=== PATIENT | female | born 1950 | race Caucasian/White ===

== ENCOUNTER 2024-01-01 08:33 | Day surgery (SDC) | payer MEDICARE, SELFPAY ==
[2023-12-31 07:00] VITALS: BMI 16.1
[2024-01-01 08:39] VITALS: BMI 15.6
[2024-01-01 08:45] VITALS: BP 161/77; PULSE 74; RESP 18; TEMP 36.7; O2SAT 100
[2024-01-01] MEDS: Lactated Ringers 1,000 ML 80 ML IVCONT (08:59)
--- NOTE | 2024-01-01 09:46 | HO.ANESPROP2 ---
HPI - Anesthesia Eval Consult details Narrative: [facility] Past Medical History Medical History Anxiety Occasional tremors Hypercholesteremia Tubular adenoma of colon Skin cancer HTN (hypertension) Family History Family history of problems with anesthesia: No Surgical History Surgical History Hx of appendectomy H/O colonoscopy History of Problems with Anesthesia: No Social History Social History Are you a primary direct support professional caregiver to a significant other at home: No Do you presently have visiting nurse or other home services: No Patient Tobacco Use Status: Former Tobacco user Have you been hit, kicked, punched, or otherwise hurt by someone within the past year? If so, by whom?: No Are you DNR?: No Advance Directives: No Advance Directives Information Provided: Yes Recently lost weight without trying: No Meds Allergies Allergy/AdvReac Type Severity Reaction Status Date / Time Sulfa (Sulfonamide Allergy Rash Verified 01/01/24 08:51 Antibiotics) Active Medications: Current Medications Lactated Ringer's (Lr) 1,000 mls @ 80 mls/hr IVCONT .[id number] SERGIO Last Admin: 01/01/24 08:59 Dose: 80 mls/hr Sodium Biphosphate/Sodium Phosphate (Sodium Phosphate,[place]-Dibasic 133 Ml Enema) 133 ml VA ONCE PRN PRN Reason: Poor Colonoscopy Prep Results Home Medications ?Medication ?Instructions ?Recorded ?Confirmed ?Last Taken ?Type Co Q-10 12/31/23 12/31/23 Unknown History Vitamin D3 12/31/23 Unknown History aspirin 81 mg tablet,delayed 81 mg PO DAILY 12/31/23 12/31/23 12/25/23 History release atorvastatin 40 mg tablet 40 mg PO DAILY 12/31/23 12/31/23 Unknown History fluticasone propionate 50 2 spray intranasal QAM 12/31/23 12/31/23 Unknown History mcg/actuation nasal spray,suspension hydrochlorothiazide 12.5 mg tablet 12.5 mg PO DAILY 12/31/23 12/31/23 Unknown History lorazepam 0.5 mg tablet 0.5 mg PO BID PRN anxiety 12/31/23 12/31/23 Unknown History propranolol 40 mg tablet 40 mg PO DAILY PRN Tremor(S) 12/31/23 12/31/23 Unknown History Exam Height,Weight and Vital Signs: Height 5 ft 5 in Weight 42.638 kg Last Vital Signs Temp 98.1 F 01/01/24 08:45 Pulse 74 01/01/24 08:45 Resp 18 01/01/24 08:45 BP 161/77 H 01/01/24 08:45 Pulse Ox 100 01/01/24 08:45 O2 Del Method Room Air 01/01/24 08:45 Airway Mallampati Class: II TM Dist: <=3cm Neck ROM: Full Loose/Missing/Broken Teeth: No Heart: ok Lungs: ok Assessment and Plan Assessment Anesthesia Assessment: Anesthesia Plan Discussed and Chart Reviewed Final Anesthetic Review Family History of Problems with Anesthesia: No History of Problems with Anesthesia: No NPO: Yes ASA Class: III Final Preanesthetic Review: No Changes in Pt Med Stat, Meds/Allgs Chart Reviewed, Consent Obtained/Reviewed and Anes Risks/Benef Reviewed Patient Risk: Intermediate Procedure Risk: Low Anesthetic Plan Anesthetic Plan: MAC: and Agree w/ Assess. and Plan Disposition: Standard PACU
[2024-01-01 10:49] VITALS: BP 89/46; PULSE 56; RESP 18; TEMP 36.1; O2SAT 100
--- NOTE | 2024-01-01 10:50 | P.BOP_ITS ---
Brief Operative Note Date of Service: 01/01/24 Pre-op diagnosis: Screening Post-op diagnosis: other (Diverticulosis) Procedure: Colonoscopy to the cecum and TI Surgeon: Agusto Soliz MD Anesthesia: MAC Was an Chief Sustainability Officer used for this Procedure?: No Estimated blood loss (mL): 0 Pathology: none sent Condition: stable Disposition: PACU
[2024-01-01 11:04] VITALS: BP 115/62; PULSE 53; RESP 18; TEMP 36.1; O2SAT 98
--- NOTE | 2024-01-01 12:01 | OP_ITS ---
DATE OF SERVICE: 01/01/2024 SURGEON: Agusto Soliz MD INDICATIONS: The patient presents for evaluation of colorectal cancer screening, personal history of tubular adenoma of the colon, and family history of colon cancer. Full consent has been obtained from her for this, including risks of bleeding and perforation. PREOPERATIVE DIAGNOSIS: POSTOPERATIVE DIAGNOSIS: PROCEDURE PERFORMED: Colonoscopy to the cecum and terminal ileum. ESTIMATED BLOOD LOSS: COMPLICATIONS: ANESTHESIA: Monitored anesthesia care. ASSISTANTS: SPECIMENS: PREOPERATIVE DIAGNOSES: Colorectal cancer screening, personal history of tubular adenoma of the colon, and family history of colon cancer. POSTOPERATIVE DIAGNOSES: Colorectal cancer screening, personal history of tubular adenoma of the colon, and family history of colon cancer, diverticulosis, and internal hemorrhoids. DESCRIPTION OF PROCEDURE: The patient was placed in the left lateral decubitus position. The digital rectal exam revealed no abnormalities. The Olympus video pediatric colonoscope was entered into the rectum and advanced to the cecum with the assistance of abdominal wall pressure. Once in the cecum, I did identify normal-appearing cecal pouch with appendiceal orifice and a normal-appearing ileocecal valve. The terminal ileum was cannulated and appeared normal. The scope was withdrawn back in the colon. The entire cecum and ileocecal valve appeared normal. The scope was slowly withdrawn assessing all mucosal surfaces carefully. Preparation was excellent. I did not visualize any sign of polyps, colitis, nor angiodysplasia. There was a mild amount of sigmoid diverticulosis. In the rectum, scope was retroflexed visualizing internal hemorrhoids, but no other pathology. The rectal mucosa appeared normal. The scope was straightened and withdrawn from the patient. She tolerated the procedure well and was returned to the recovery area in stable condition. IMPRESSION: 1. Diverticulosis. 2. Internal hemorrhoids. PLAN: I would recommend a repeat colonoscopy for screening in 5 years given her previous history of tubular adenomas and family history of colon cancer. She was advised that she could resume her aspirin today. She will otherwise see me on a p.r.n. basis. MD SUSAN Keating/NOHEMI / [phone]
== END 2024-01-01 11:31 | disposition home or self-care (01) ==
PROVIDERS: PCP Internal Medicine; Visit Provider Internal Medicine
PROC: 0DJD8ZZ Inspection of Lower Intestinal Tract, Via Natural or Artificial Opening Endoscopic (ICD-10-PCS; CPT 45378; principal; 2024-01-01 09:40)
DX: Z12.11 Encounter for screening for malignant neoplasm of colon (principal); Z86.0101 Personal history of adenomatous and serrated colon polyps; Z80.0 Family history of malignant neoplasm of digestive organs; K57.30 Diverticulosis of large intestine without perforation or abscess without bleeding; K64.8 Other hemorrhoids; I10 Essential (primary) hypertension; Z85.828 Personal history of other malignant neoplasm of skin; Z87.891 Personal history of nicotine dependence; Z79.51 Long term (current) use of inhaled steroids; Z79.82 Long term (current) use of aspirin; Z79.899 Other long term (current) drug therapy; Z79.83 Long term (current) use of bisphosphonates
CPT/HCPCS: G0105; J2003; J2704